=== PATIENT | male | born 1985 | race Caucasian/White ===

== ENCOUNTER 2017-09-12 00:30 | Observation (INO) | payer SELFPAY ==
[2017-09-12 01:02] LABS: CHLORIDE,CL 103 mEq/L (98-106); SODIUM,NA 138 mEq/L (136-145)
[2017-09-12] MEDS ORDERED: Alum Hydrox/Mag Hydrox/Simeth 30 ML, Lidocaine 2% 15 ML PO ONE ×2 (01:04)
--- NOTE | 2017-09-12 01:08 | EDM.PDOC ---
ED HPI GENERAL MEDICAL PROBLEM - General Chief Complaint: General Stated Complaint: abd pain Time Seen by Provider: 09/12/17 01:00 Source of Information: Reports: Patient History Limitations: Reports: No Limitations - History of Present Illness INITIAL COMMENTS - FREE TEXT/NARRATIVE: Raf is a 32 yo male who presents to the ER with complaints of ongoing abdominal discomfort. States he was seen by Ramona Willis, PCP about a month ago and had his Gabapentin increased for chronic abdominal pain. He has a known history of pancreatitis with pseudocysts and has been followed by the [facility] with prior surgical intervention. He admits he will occasionally get a flare up but seems to reside on itself. States current pain started about 5 days ago and hasn't really let up. He isn't sure if it is secondary to an ulcer or if it is his pancreas. Denies any alcohol use as he states he hasn't drank in years. States today he layed around and his father convinced him to come in [facility]. States he hasn't been followed by GI or really anyone up until recently. He hasn't had his amylase checked in a long time and as far as he knows it was normal then. Left Upper Abdomen Pain Score (Numeric/FACES): 8 - Related Data Allergies Allergy/AdvReac Type Severity Reaction Status Date / Time No Known Allergies Allergy Verified 09/12/17 00:33 Home Meds: Home Meds Lisinopril 10 mg PO DAILY 06/22/14 [History] Metoprolol Tartrate [Lopressor] 50 mg PO BID 06/22/14 [History] DULoxetine [Cymbalta] 60 mg PO DAILY 09/12/17 [History] Gabapentin [Neurontin] 900 mg PO TID 09/12/17 [History] Omeprazole 20 mg PO DAILY 09/12/17 [History] Past Medical History Cardiovascular History: Reports: Hypertension Gastrointestinal History: Reports: Other (See Below) Other Gastrointestinal History: PANCREATITIS Psychiatric History: Reports: Anxiety, Depression - Infectious Disease History Infectious Disease History: Reports: None - Past Surgical History GI Surgical History: Reports: Cholecystectomy Other GI Surgeries/Procedures: Pancreatic pseudocyst Social & Family History - Family History Family Medical History: Noncontributory - Tobacco Use Smoking Status *Q: Current Every Day Smoker Years of Tobacco use: 15 Packs/Tins Daily: 1 ED ROS GENERAL - Review of Systems Review Of Systems: See Below Constitutional: Reports: Chills, Weakness, Decreased Appetite. Denies: Fever HEENT: Reports: No Symptoms Respiratory: Reports: No Symptoms Cardiovascular: Reports: No Symptoms GI/Abdominal: Reports: Abdominal Pain, Decreased Appetite, Nausea, Vomiting. Denies: Bloody Stool, Constipation, Diarrhea : Reports: No Symptoms Skin: Reports: No Symptoms Neurological: Reports: No Symptoms Psychiatric: Reports: Anxiety ED EXAM, GENERAL - Physical Exam Exam: See Below Exam Limited By: No Limitations General Appearance: Alert, Mild Distress Ears: Normal External Exam, Normal Canal, Hearing Grossly Normal, Normal TMs Nose: Normal Inspection, Normal Mucosa, No Blood Throat/Mouth: Normal Inspection, Normal Lips, Normal Teeth, Normal Gums, Normal Oropharynx, Normal Voice, No Airway Compromise Head: Atraumatic, Normocephalic Neck: Normal Inspection, Supple Respiratory/Chest: No Respiratory Distress, Lungs Clear, Normal Breath Sounds, No Accessory Muscle Use Cardiovascular: Regular Rate, Rhythm, No Murmur GI/Abdominal: Normal Bowel Sounds, Soft, No Distention, Tender (midline to left upper quadrant) Extremities: Normal Inspection, No Pedal Edema Neurological: Alert, Oriented, Normal Cognition Psychiatric: Normal Affect, Normal Mood Skin Exam: Warm, Dry, Intact, Normal Color, No Rash Course - Vital Signs Last Recorded V/S: Last Vital Signs Temp 96.5 F 09/12/17 00:37 Pulse 77 09/12/17 00:37 Resp 20 09/12/17 00:37 BP 147/85 H 09/12/17 00:37 Pulse Ox 98 09/12/17 00:37 - Orders/Labs/Meds Orders: Active Orders 24 hr Category Date Time Status AMYLASE [CHEM] Stat Lab 09/12/17 00:43 Ordered C-REACTIVE PROTEIN [CHEM] Stat Lab 09/12/17 00:43 Ordered COMPREHENSIVE METABOLIC PN,CMP [CHEM] Stat Lab 09/12/17 00:43 Ordered DRUG SCREEN URINE BIORAD [URCHEM] Stat Lab 09/12/17 00:43 Ordered LIPASE [REF] Stat Lab 09/12/17 00:43 Ordered UA W/MICROSCOPIC [URIN] Stat Lab 09/12/17 00:43 Ordered Labs: Laboratory Tests 09/12/17 Range/Units 00:43 WBC 10.4 H (5.0-10.0) 10^3/uL RBC 4.60 (4.50-6.00) 10^6/uL Hgb 14.8 (14.0-18.0) g/dL Hct 43.4 (40.0-54.0) % MCV 94.3 H (82.0-94.0) fL MCH 32.2 H (27.0-32.0) pg MCHC 34.1 (33.0-38.0) g/dL RDW Coeff of Lluvia 12.9 (11.0-15.0) % Plt Count 261 (150-400) 10^3/uL Neut % (Auto) 78.3 (35-85) % Lymph % (Auto) 15.0 (10-55) % [place] % (Auto) 5.5 (0-16) % Eos % (Auto) 1.0 (0-5) % Baso % (Auto) 0.2 (0-3) % Neut # (Auto) 8.18 H (1.80-7.00) 10^3/uL Lymph # (Auto) 1.57 (1.00-4.80) 10^3/uL [place] # (Auto) 0.57 (0.00-0.80) 10^3/uL Eos # (Auto) 0.10 (0.00-0.45) 10^3/uL Baso # (Auto) 0.02 10^3/uL Departure - Departure Time of Disposition: 01:40 Disposition: Refer to Observation Condition: Good Clinical Impression: Abdominal pain Qualifiers: Abdominal location: left upper quadrant Qualified Code(s): R10.12 - Left upper quadrant pain Acute pancreatitis Qualifiers: Pancreatitis type: alcohol induced Qualified Code(s): K85.2 - Alcohol induced acute pancreatitis - Discharge Information Referrals: Yudelka Willis PA [Primary Care Provider] - - Problem List & Annotations (1) Acute pancreatitis SNOMED Code(s): 513032398 Code(s): K85.9 - ACUTE PANCREATITIS, UNSPECIFIED * DO NOT USE * Status: Acute Current Visit: Yes Qualifiers: Pancreatitis type: alcohol induced (2) Abdominal pain SNOMED Code(s): 87911616 Code(s): R10.9 - UNSPECIFIED ABDOMINAL PAIN Status: Acute Current Visit: Yes Qualifiers: Abdominal location: left upper quadrant Qualified Code(s): R10.12 - Left upper quadrant pain - Problem List Review Problem List Initiated/Reviewed/Updated: Yes - My Orders Last 24 Hours: My Active Orders 09/12/17 00:43 AMYLASE [CHEM] Stat C-REACTIVE PROTEIN [CHEM] Stat COMPREHENSIVE METABOLIC PN,CMP [CHEM] Stat DRUG SCREEN URINE BIORAD [URCHEM] Stat LIPASE [REF] Stat UA W/MICROSCOPIC [URIN] Stat - Assessment/Plan Admission H&P: Please use this note as an admission H&P Last 24 Hours: My Active Orders 09/12/17 00:43 AMYLASE [CHEM] Stat C-REACTIVE PROTEIN [CHEM] Stat COMPREHENSIVE METABOLIC PN,CMP [CHEM] Stat DRUG SCREEN URINE BIORAD [URCHEM] Stat LIPASE [REF] Stat UA W/MICROSCOPIC [URIN] Stat Plan: I reviewed Raf's clinical chart and last amylase was done in May of 2016 and normal at 80. Currently today it is just slightly elevated at 123. We will admit to Dr. Mcmillan's services under observation at this time for IV fluids and pain control. I will consult with Ramona Willis, who he states is his PCP now in the morning as well. Raf was transferred to the floor in satisfactory condition.
[2017-09-12] MEDS ORDERED: Docusate Sodium 100 MG Cap PO PRN (01:52)
[2017-09-12] MEDS ORDERED: Sodium Chloride 0.9% 10 ML Syringe FLUSH PRN (01:52)
[2017-09-12] MEDS ORDERED: Enoxaparin 40 MG/0.4 ML Syringe SUBCUT SCH ×2 (02:15→20:00)
[2017-09-12] MEDS: Lactated Ringers 1,000 ML IV SCH ×4 (02:27→22:10)
[2017-09-12] MEDS: Ondansetron 4 MG/2 ML SDV IV PRN ×2 (02:30→19:45)
[2017-09-12] MEDS: Ketorolac 30 MG/ML SDV IVPUSH PRN ×3 (02:33→22:11)
[2017-09-12] MEDS: Morphine 2 MG/ML Syringe IVPUSH PRN ×2 (05:13→09:44)
[2017-09-12] MEDS ORDERED: Iopamidol 612 MG/ML 100 ML Bottle IVPUSH ONE (07:13)
[2017-09-12 07:47] LABS: CHLORIDE,CL 103 mEq/L (98-106); SODIUM,NA 137 mEq/L (136-145)
[2017-09-12] MEDS ORDERED: Lisinopril 10 MG Tab PO SCH (08:00)
[2017-09-12] MEDS ORDERED: DULoxetine 30 MG Cap PO SCH (08:00)
[2017-09-12] MEDS ORDERED: Pantoprazole 40 MG Vial IVPUSH SCH (08:00)
[2017-09-12] MEDS: Gabapentin 300 MG Cap PO SCH ×3 (09:06→19:46)
[2017-09-12] MEDS: Metoprolol Tartrate 50 MG Tab PO SCH ×2 (09:06→19:46)
[2017-09-12] MEDS: fentaNYL 100 MCG/2 ML SDV IVPUSH PRN (15:57)
[2017-09-12] MEDS ORDERED: traMADol 50 MG Tab PO ONE (20:23)
--- NOTE | 2017-09-12 21:27 | PCM.PN ---
- General Info Date of Service: 09/12/17 Admission Dx/Problem (Free Text): Acute Pancreatitis Functional Status: Reports: Pain Controlled (with pain meds), Ambulating - Review of Systems General: Reports: Fatigue, Malaise. Denies: Fever, Weakness HEENT: Reports: No Symptoms Pulmonary: Denies: Shortness of Breath, Cough Cardiovascular: Denies: Chest Pain, Edema, Lightheadedness Gastrointestinal: Reports: Abdominal Pain. Denies: Nausea, Vomiting Genitourinary: Reports: No Symptoms Musculoskeletal: Reports: No Symptoms Skin: Reports: No Symptoms Neurological: Reports: No Symptoms Psychiatric: Reports: No Symptoms - Patient Data Vitals - Most Recent: Last Vital Signs Temp 96.2 F 09/12/17 19:58 Pulse 68 09/12/17 19:58 Resp 16 09/12/17 19:58 BP 156/89 H 09/12/17 19:58 Pulse Ox 98 09/12/17 19:58 Weight - Most Recent: 132 lb 1.6 oz I&O - Last 24 Hours: Intake & Output 09/12/17 09/12/17 09/12/17 06:59 14:59 22:59 Intake Total 995 1000 Output Total 600 1250 Balance -600 995 -250 Lab Results Last 24 Hours: Laboratory Results - last 24 hr 09/12/17 09/12/17 09/12/17 Range/Units 00:43 00:43 05:11 WBC 10.4 H 9.7 (5.0-10.0) 10^3/uL RBC 4.60 4.53 (4.50-6.00) 10^6/uL Hgb 14.8 14.4 (14.0-18.0) g/dL Hct 43.4 43.0 (40.0-54.0) % MCV 94.3 H 94.9 H (82.0-94.0) fL MCH 32.2 H 31.8 (27.0-32.0) pg MCHC 34.1 33.5 (33.0-38.0) g/dL RDW Coeff of Lluvia 12.9 12.9 (11.0-15.0) % Plt Count 261 254 (150-400) 10^3/uL Neut % (Auto) 78.3 67.0 (35-85) % Lymph % (Auto) 15.0 21.6 (10-55) % [place] % (Auto) 5.5 10.2 (0-16) % Eos % (Auto) 1.0 0.9 (0-5) % Baso % (Auto) 0.2 0.3 (0-3) % Neut # (Auto) 8.18 H 6.47 (1.80-7.00) 10^3/uL Lymph # (Auto) 1.57 2.08 (1.00-4.80) 10^3/uL [place] # (Auto) 0.57 0.98 H (0.00-0.80) 10^3/uL Eos # (Auto) 0.10 0.09 (0.00-0.45) 10^3/uL Baso # (Auto) 0.02 0.03 10^3/uL Sodium 138 (136-145) mEq/L Potassium 4.2 (3.5-5.0) mEq/L Chloride 103 (98-106) mEq/L Carbon Dioxide 30 (21-32) mmol/L BUN 17 (7-18) mg/dL Creatinine 0.8 (0.7-1.3) mg/dL Est Cr Clr Drug Dosing 125.21 mL/min Estimated GFR (MDRD) > 60 (>=60) mL/min Glucose 171 H D (75-99) mg/dL Calcium 9.1 (8.4-10.1) mg/dL Magnesium (1.8-2.4) mg/dL Total Bilirubin 0.2 (0.0-1.0) mg/dL AST 14 L (15-37) U/L ALT 21 (12-78) U/L Alkaline Phosphatase 103 (46-116) U/L C-Reactive Protein 5.9 H (0.2-0.8) mg/dL Total Protein 7.2 (6.4-8.2) g/dL Albumin 3.7 (3.4-5.0) g/dL Amylase 123 H (25-115) U/L Urine Color (YELLOW) Urine Appearance (CLEAR) Urine pH (4.5-8.0) Ur Specific [place] (1.003-1.020) Urine Protein (NEGATIVE) mg/dL Urine Glucose (UA) (NEGATIVE) mg/dL Urine Ketones (NEGATIVE) mg/dL Urine Occult Blood (NEGATIVE) Urine Nitrite (NEGATIVE) Urine Bilirubin (NEGATIVE) Urine Urobilinogen (0.2-1.0) EU/dL Ur Leukocyte Esterase (NEGATIVE) Urine RBC (0-5) /HPF Urine WBC (0-5) /HPF Urine Opiates Screen (NEGATIVE) Ur Oxycodone Screen (NEGATIVE) Urine Methadone Screen (NEGATIVE) Ur Barbiturates Screen (NEGATIVE) U Tricyclic Antidepress (NEGATIVE) Ur Phencyclidine Scrn (NEGATIVE) Ur Amphetamine Screen (NEGATIVE) U Methamphetamines Scrn (NEGATIVE) Urine MDMA Screen (NEGATIVE) U Benzodiazepines Scrn (NEGATIVE) Urine Cocaine Screen (NEGATIVE) U Marijuana (THC) Screen (NEGATIVE) 09/12/17 09/12/17 09/12/17 Range/Units 05:11 05:23 05:23 WBC (5.0-10.0) 10^3/uL RBC (4.50-6.00) 10^6/uL Hgb (14.0-18.0) g/dL Hct (40.0-54.0) % MCV (82.0-94.0) fL MCH (27.0-32.0) pg MCHC (33.0-38.0) g/dL RDW Coeff of Lluvia (11.0-15.0) % Plt Count (150-400) 10^3/uL Neut % (Auto) (35-85) % Lymph % (Auto) (10-55) % [place] % (Auto) (0-16) % Eos % (Auto) (0-5) % Baso % (Auto) (0-3) % Neut # (Auto) (1.80-7.00) 10^3/uL Lymph # (Auto) (1.00-4.80) 10^3/uL [place] # (Auto) (0.00-0.80) 10^3/uL Eos # (Auto) (0.00-0.45) 10^3/uL Baso # (Auto) 10^3/uL Sodium 137 (136-145) mEq/L Potassium 4.5 (3.5-5.0) mEq/L Chloride 103 (98-106) mEq/L Carbon Dioxide 31 (21-32) mmol/L BUN 15 (7-18) mg/dL Creatinine 0.6 L (0.7-1.3) mg/dL Est Cr Clr Drug Dosing 147.02 mL/min Estimated GFR (MDRD) > 60 (>=60) mL/min Glucose 111 H D (75-99) mg/dL Calcium 9.1 (8.4-10.1) mg/dL Magnesium 2.1 (1.8-2.4) mg/dL Total Bilirubin 0.4 (0.0-1.0) mg/dL AST 91 H (15-37) U/L ALT 60 (12-78) U/L Alkaline Phosphatase 215 H (46-116) U/L C-Reactive Protein 5.9 H (0.2-0.8) mg/dL Total Protein 6.9 (6.4-8.2) g/dL Albumin 3.5 (3.4-5.0) g/dL Amylase (25-115) U/L Urine Color Yellow (YELLOW) Urine Appearance Clear (CLEAR) Urine pH 7.0 (4.5-8.0) Ur Specific [place] 1.020 (1.003-1.020) Urine Protein Negative (NEGATIVE) mg/dL Urine Glucose (UA) Negative (NEGATIVE) mg/dL Urine Ketones Negative (NEGATIVE) mg/dL Urine Occult Blood Negative (NEGATIVE) Urine Nitrite Negative (NEGATIVE) Urine Bilirubin Negative (NEGATIVE) Urine Urobilinogen 1.0 (0.2-1.0) EU/dL Ur Leukocyte Esterase Negative (NEGATIVE) Urine RBC Not seen (0-5) /HPF Urine WBC Not seen (0-5) /HPF Urine Opiates Screen Negative (NEGATIVE) Ur Oxycodone Screen Negative (NEGATIVE) Urine Methadone Screen Negative (NEGATIVE) Ur Barbiturates Screen Negative (NEGATIVE) U Tricyclic Antidepress Negative (NEGATIVE) Ur Phencyclidine Scrn Negative (NEGATIVE) Ur Amphetamine Screen Negative (NEGATIVE) U Methamphetamines Scrn Negative (NEGATIVE) Urine MDMA Screen Negative (NEGATIVE) U Benzodiazepines Scrn Negative (NEGATIVE) Urine Cocaine Screen Negative (NEGATIVE) U Marijuana (THC) Screen Positive H (NEGATIVE) 09/12/17 Range/Units 07:00 WBC (5.0-10.0) 10^3/uL RBC (4.50-6.00) 10^6/uL Hgb (14.0-18.0) g/dL Hct (40.0-54.0) % MCV (82.0-94.0) fL MCH (27.0-32.0) pg MCHC (33.0-38.0) g/dL RDW Coeff of Lluvia (11.0-15.0) % Plt Count (150-400) 10^3/uL Neut % (Auto) (35-85) % Lymph % (Auto) (10-55) % [place] % (Auto) (0-16) % Eos % (Auto) (0-5) % Baso % (Auto) (0-3) % Neut # (Auto) (1.80-7.00) 10^3/uL Lymph # (Auto) (1.00-4.80) 10^3/uL [place] # (Auto) (0.00-0.80) 10^3/uL Eos # (Auto) (0.00-0.45) 10^3/uL Baso # (Auto) 10^3/uL Sodium (136-145) mEq/L Potassium (3.5-5.0) mEq/L Chloride (98-106) mEq/L Carbon Dioxide (21-32) mmol/L BUN (7-18) mg/dL Creatinine (0.7-1.3) mg/dL Est Cr Clr Drug Dosing mL/min Estimated GFR (MDRD) (>=60) mL/min Glucose (75-99) mg/dL Calcium (8.4-10.1) mg/dL Magnesium (1.8-2.4) mg/dL Total Bilirubin (0.0-1.0) mg/dL AST (15-37) U/L ALT (12-78) U/L Alkaline Phosphatase (46-116) U/L C-Reactive Protein (0.2-0.8) mg/dL Total Protein (6.4-8.2) g/dL Albumin (3.4-5.0) g/dL Amylase 105 (25-115) U/L Urine Color (YELLOW) Urine Appearance (CLEAR) Urine pH (4.5-8.0) Ur Specific [place] (1.003-1.020) Urine Protein (NEGATIVE) mg/dL Urine Glucose (UA) (NEGATIVE) mg/dL Urine Ketones (NEGATIVE) mg/dL Urine Occult Blood (NEGATIVE) Urine Nitrite (NEGATIVE) Urine Bilirubin (NEGATIVE) Urine Urobilinogen (0.2-1.0) EU/dL Ur Leukocyte Esterase (NEGATIVE) Urine RBC (0-5) /HPF Urine WBC (0-5) /HPF Urine Opiates Screen (NEGATIVE) Ur Oxycodone Screen (NEGATIVE) Urine Methadone Screen (NEGATIVE) Ur Barbiturates Screen (NEGATIVE) U Tricyclic Antidepress (NEGATIVE) Ur Phencyclidine Scrn (NEGATIVE) Ur Amphetamine Screen (NEGATIVE) U Methamphetamines Scrn (NEGATIVE) Urine MDMA Screen (NEGATIVE) U Benzodiazepines Scrn (NEGATIVE) Urine Cocaine Screen (NEGATIVE) U Marijuana (THC) Screen (NEGATIVE) Med Orders - Current: Current Medications Docusate Sodium (Colace) 100 mg PO BID PRN PRN Reason: Constipation Duloxetine HCl (Cymbalta) 60 mg PO DAILY [facility] Last Admin: 09/12/17 09:06 Dose: 60 mg Enoxaparin Sodium (Lovenox) 40 mg SUBCUT DAILY@1999 [facility] Last Admin: 09/12/17 19:48 Dose: Not Given Fentanyl (Sublimaze) 50 mcg IVPUSH Q6H PRN PRN Reason: Pain Last Admin: 09/12/17 15:57 Dose: 50 mcg Gabapentin (Neurontin) 900 mg PO TID [facility] Last Admin: 09/12/17 19:46 Dose: 900 mg Lactated Ringer's (Ringers, Lactated) 1,000 mls @ 150 mls/hr IV ASDIRECTED [facility] Last Admin: 09/12/17 15:48 Dose: 150 mls/hr Ketorolac Tromethamine (Toradol) 30 mg IVPUSH Q8H PRN PRN Reason: Pain Stop: 09/17/17 01:35 Last Admin: 09/12/17 14:47 Dose: 30 mg Lisinopril (Prinivil) 10 mg PO DAILY [facility] Last Admin: 09/12/17 09:07 Dose: 10 mg Metoprolol Tartrate (Lopressor) 50 mg PO BID [facility] Last Admin: 09/12/17 19:46 Dose: 50 mg Ondansetron HCl (Zofran) 4 mg IV Q4H PRN PRN Reason: Nausea/Vomiting Last Admin: 09/12/17 19:45 Dose: 4 mg Pantoprazole Sodium (Protonix Iv) 40 mg IVPUSH DAILY [facility] Last Admin: 09/12/17 08:04 Dose: 40 mg Sodium Chloride (Saline Flush) 10 ml FLUSH ASDIRECTED PRN PRN Reason: Keep Vein Open Discontinued Medications Al Hydroxide/Mg Hydroxide 30 (ml/ Lidocaine HCl 15 ml) 0 ml PO ONETIME ONE Stop: 09/12/17 01:05 Last Admin: 09/12/17 01:11 Dose: 30 ml Enoxaparin Sodium (Lovenox) 40 mg SUBCUT Q24H [facility] Last Admin: 09/12/17 02:37 Dose: 40 mg Iopamidol (Isovue-300 (61%)) 100 ml IVPUSH ONETIME ONE Stop: 09/12/17 07:14 Last Admin: 09/12/17 08:09 Dose: 100 ml Morphine Sulfate (Morphine) 2 mg IVPUSH Q4H PRN PRN Reason: Pain (severe 7-10) Last Admin: 09/12/17 09:44 Dose: 2 mg Tramadol HCl (Ultram) 50 mg PO ONETIME ONE Stop: 09/12/17 20:24 Last Admin: 09/12/17 20:44 Dose: 50 mg - Exam General: Alert, Oriented HEENT: Mucous Membr. Moist/[place] Neck: Supple Lungs: Clear to Auscultation, Normal Respiratory Effort Cardiovascular: Regular Rate, Regular Rhythm GI/Abdominal Exam: Normal Bowel Sounds, Soft, Tender (midepigastric area) Extremities: Normal Inspection, No Pedal Edema Skin: Warm, Dry Neurological: No New Focal Deficit - Problem List & Annotations (1) Acute pancreatitis SNOMED Code(s): 563303573 Code(s): K85.9 - ACUTE PANCREATITIS, UNSPECIFIED * DO NOT USE * Status: Acute Priority: High Current Visit: Yes Qualifiers: Pancreatitis type: alcohol induced (2) Abdominal pain SNOMED Code(s): 28071234 Code(s): R10.9 - UNSPECIFIED ABDOMINAL PAIN Status: Acute Priority: High Current Visit: Yes Qualifiers: Abdominal location: left upper quadrant Qualified Code(s): R10.12 - Left upper quadrant pain - Problem List Review Problem List Initiated/Reviewed/Updated: Yes - My Orders Last 24 Hours: My Active Orders 09/12/17 10:43 fentaNYL [Sublimaze] 50 mcg IVPUSH Q6H PRN - Assessment Assessment:: Acute Pancreatitis - Plan Plan:: Patient continues to have pain that he rates a 7/10, does get some pain relief with pain meds. Remains NPO with IV fluids infusing. Did have a CT scan of his abdomen this am. Stat read noted to have acute on chronic pancreatitis. Very small pseudocyst noted. No necrosis. WBC 10.7 down to 9.7. Glucose improved today to 111. CRP 5.9. Amylase improved from 123 to 105. Is tender to upper quadrants. Continue to keep NPO as pain still significant. IV fluids and pain meds. Will follow Amylase levels. Introduce fluids as able dependent on pain. Reevaluate in am.
[2017-09-13] MEDS: fentaNYL 100 MCG/2 ML SDV IVPUSH PRN (00:14)
[2017-09-13] MEDS: Lactated Ringers 1,000 ML IV SCH (04:07)
[2017-09-13 04:26] VITALS: BP 142/86
== END 2017-09-13 06:15 | disposition left against medical advice (07) ==
LOC: CC.ED 00:30 → OBSVTOIN 01:31 → INTOOBSV 01:31 → CC.MS 01:31 → OBSVTOIN 01:41 → UNDOADMOB 01:41 → INTOOBSV 01:41
PROVIDERS: ADMIT Physician Assistant Medical; ATTEND Family Medicine
DX: K85.20 Alcohol induced acute pancreatitis without necrosis or infection (principal); K86.0 Alcohol-induced chronic pancreatitis; K86.9 Disease of pancreas, unspecified; I10 Essential (primary) hypertension; F17.200 Nicotine dependence, unspecified, uncomplicated; F41.9 Anxiety disorder, unspecified; F32.9 Major depressive disorder, single episode, unspecified; Z79.899 Other long term (current) drug therapy
CPT/HCPCS: 36415; 74178; 80053; 80305; 81001; 82150; 83690; 83735; 85025; 86140; 99284; A9270; C9113; J1650; J1885; J2270; J2405; J3010; J7120; Q9967; 96361; 96372; 96374; 96375

== ENCOUNTER 2018-07-07 01:51 | Emergency (ER) | payer MEDICARE, MEDICAID ==
[2018-07-07] MEDS ORDERED: Ondansetron 4 MG Tab.DIS PO ONE (01:52)
[2018-07-07] MEDS ORDERED: traMADol 50 MG Tab PO ONE (01:52)
[2018-07-07] MEDS ORDERED: Sodium Chloride 0.9% 1,000 ML IV ONE (02:20)
[2018-07-07] MEDS ORDERED: Ondansetron 4 MG/2 ML SDV IVPUSH PRN (02:20)
[2018-07-07] MEDS ORDERED: Ketorolac 30 MG/ML SDV IVPUSH PRN (02:20)
[2018-07-07 02:40] LABS: CHLORIDE,CL 98 mEq/L (98-106); SODIUM,NA 140 mEq/L (136-145)
[2018-07-07] MEDS ORDERED: Morphine 4 MG/ML Syringe IVPUSH ONE (03:04)
[2018-07-07] MEDS ORDERED: Morphine 2 MG/ML Syringe IVPUSH ONE (03:08)
--- NOTE | 2018-07-07 03:13 | EDM.PDOC ---
ED HPI GENERAL MEDICAL PROBLEM - General Chief Complaint: Abdominal Pain Stated Complaint: LLQ pain Time Seen by Provider: 07/07/18 02:15 Source of Information: Reports: Patient History Limitations: Reports: No Limitations - History of Present Illness INITIAL COMMENTS - FREE TEXT/NARRATIVE: Raf is a 33 yo male who presents to the ED with complaints of nausea, vomiting and abdominal pain. He has known history of chronic pancreatitis with pancreatic cysts, which he admits have been gradually shrinking. He has been seeing a few providers in [place] and states he really doesn't have a primary provider presently. States he has been going to the [place] ED off and on over the last month with the same symptoms which is an exacerbation of his pancreatitis. Admits he will typically get something for the pain, anti-nausea medications and IV fluids which seems to help. States his lipase has been running high along with his liver enzymes as well. He states no surgeon will do surgery on him and they keep telling him it will get better on its own over time. He states the last couple of days he hasn't really ate or drank anything. States if he eats something the pain seems to worsen. Left Lower Abdomen Pain Score (Numeric/FACES): 9 - Related Data Allergies Allergy/AdvReac Type Severity Reaction Status Date / Time No Known Allergies Allergy Verified 07/07/18 01:58 Home Meds: Home Meds Lisinopril 10 mg PO DAILY 06/22/14 [History] Metoprolol Tartrate [Lopressor] 50 mg PO BID 06/22/14 [History] Amitriptyline [Elavil] 10 mg PO BEDTIME 07/07/18 [History] Pantoprazole [ProTONIX] 40 mg PO DAILY 07/07/18 [History] busPIRone [Buspar] 10 mg PO TID 07/07/18 [History] Past Medical History Cardiovascular History: Reports: Hypertension Gastrointestinal History: Reports: Other (See Below) Other Gastrointestinal History: Chronic pancreatitis Psychiatric History: Reports: Anxiety, Depression - Infectious Disease History Infectious Disease History: Reports: None - Past Surgical History GI Surgical History: Reports: Cholecystectomy Other GI Surgeries/Procedures: Pancreatic pseudocyst Social & Family History - Family History Family Medical History: Noncontributory - Tobacco Use Smoking Status *Q: Current Every Day Smoker Years of Tobacco use: 18 Packs/Tins Daily: 5 - Caffeine Use Caffeine Use: Reports: Coffee - Recreational Drug Use Recreational Drug Use: No ED ROS GENERAL - Review of Systems Review Of Systems: See Below Constitutional: Reports: Decreased Appetite. Denies: Fever, Chills HEENT: Reports: No Symptoms Respiratory: Reports: No Symptoms Cardiovascular: Reports: No Symptoms GI/Abdominal: Reports: Abdominal Pain, Decreased Appetite, Nausea, Vomiting. Denies: Bloody Stool, Constipation, Diarrhea : Reports: No Symptoms Neurological: Reports: No Symptoms Psychiatric: Reports: No Symptoms ED EXAM, GI/ABD - Physical Exam Exam: See Below Exam Limited By: No Limitations General Appearance: Alert, Mild Distress Ears: Normal External Exam, Normal Canal, Hearing Grossly Normal, Normal TMs Nose: Normal Inspection, Normal Mucosa, No Blood Throat/Mouth: Normal Inspection, Normal Lips, Normal Gums, Normal Oropharynx, Normal Voice, No Airway Compromise Head: Atraumatic, Normocephalic Neck: Normal Inspection, Supple, Non-Tender Respiratory/Chest: No Respiratory Distress, Lungs Clear, Normal Breath Sounds, No Accessory Muscle Use Cardiovascular: Normal Peripheral Pulses, Regular Rate, Rhythm, No Edema, No Murmur GI/Abdominal Exam: Normal Bowel Sounds, Soft, No Organomegaly, No Mass, Tender ( mild epigastric tenderness). No: Distended, Guarding, Rigid, Rebound Extremities: Normal Inspection, No Pedal Edema Neurological: Alert, Oriented, Normal Cognition, No Motor/Sensory Deficits Psychiatric: Normal Affect, Normal Mood Skin Exam: Warm, Dry, Intact, Normal Color, No Rash Course - Vital Signs Last Recorded V/S: Last Vital Signs Temp 98.6 F 07/07/18 03:40 Pulse 90 07/07/18 03:40 Resp 20 07/07/18 03:40 BP 128/88 07/07/18 03:40 Pulse Ox 97 07/07/18 03:40 - Orders/Labs/Meds Orders: Active Orders 24 hr Category Date Time Status Ketorolac [Toradol] Med 07/07/18 02:20 Active 30 mg IVPUSH Q6H PRN Ondansetron [Zofran] Med 07/07/18 03:30 Active 4 mg IV Q4H PRN Sodium Chloride 0.9% [Normal Saline] 1,000 ml Med 07/07/18 03:45 Active IV ASDIRECTED fentaNYL [Sublimaze] Med 07/07/18 03:30 Active 25 - 50 mcg IVPUSH Q4H PRN Medication Orders Fentanyl (Sublimaze) 25 - 50 mcg IVPUSH Q4H PRN PRN Reason: Pain Last Admin: 07/07/18 07:41 Dose: 25 mcg Admin: 07/07/18 03:38 Dose: 25 mcg Sodium Chloride (Normal Saline) 1,000 mls @ 150 mls/hr IV ASDIRECTED MARY Last Admin: 07/07/18 03:40 Dose: 150 mls/hr Ketorolac Tromethamine (Toradol) 30 mg IVPUSH Q6H PRN PRN Reason: Pain Stop: 07/12/18 02:20 Last Admin: 07/07/18 02:35 Dose: 30 mg Ondansetron HCl (Zofran) 4 mg IV Q4H PRN PRN Reason: Nausea/Vomiting Labs: Laboratory Tests 07/07/18 07/07/18 07/07/18 Range/Units 02:25 02:25 08:00 WBC 13.3 H (5.0-10.0) 10^3/uL RBC 5.22 (4.50-6.00) 10^6/uL Hgb 16.6 (14.0-18.0) g/dL Hct 46.7 (40.0-54.0) % MCV 89.5 (82.0-94.0) fL MCH 31.8 (27.0-32.0) pg MCHC 35.5 (33.0-38.0) g/dL RDW Coeff of Lluvia 12.3 (11.0-15.0) % Plt Count 264 (150-400) 10^3/uL MPV Cancelled Neut % (Auto) 85.2 H (35-85) % Lymph % (Auto) 9.6 L (10-55) % [place] % (Auto) 4.5 (0-16) % Eos % (Auto) 0.5 (0-5) % Baso % (Auto) 0.2 (0-3) % Neut # (Auto) 11.28 H (1.80-7.00) 10^3/uL Lymph # (Auto) 1.27 (1.00-4.80) 10^3/uL [place] # (Auto) 0.60 (0.00-0.80) 10^3/uL Eos # (Auto) 0.07 (0.00-0.45) 10^3/uL Baso # (Auto) 0.02 10^3/uL Sodium 140 (136-145) mEq/L Potassium 3.7 (3.5-5.0) mEq/L Chloride 98 (98-106) mEq/L Carbon Dioxide 28 (21-32) mmol/L BUN 10 (7-18) mg/dL Creatinine 0.7 (0.7-1.3) mg/dL Est Cr Clr Drug Dosing 132.30 mL/min Estimated GFR (MDRD) > 60 (>=60) mL/min Glucose 128 H (75-99) mg/dL Calcium 10.2 H (8.4-10.1) mg/dL Total Bilirubin 0.5 (0.0-1.0) mg/dL AST 146 H (15-37) U/L ALT 321 H* (12-78) U/L Alkaline Phosphatase 376 H (46-116) U/L C-Reactive Protein 4.3 H 4.9 H (0.2-0.8) mg/dL Total Protein 8.9 H (6.4-8.2) g/dL Albumin 4.7 (3.4-5.0) g/dL Amylase 85 (25-115) U/L Lipase 561 H 255 (73-393) U/L 07/07/18 Range/Units 08:00 WBC 9.5 (5.0-10.0) 10^3/uL RBC 4.43 L (4.50-6.00) 10^6/uL Hgb 14.1 (14.0-18.0) g/dL Hct 40.6 (40.0-54.0) % MCV 91.6 (82.0-94.0) fL MCH 31.8 (27.0-32.0) pg MCHC 34.7 (33.0-38.0) g/dL RDW Coeff of Lluvia 12.4 (11.0-15.0) % Plt Count 213 (150-400) 10^3/uL MPV Neut % (Auto) 63.5 (35-85) % Lymph % (Auto) 23.4 (10-55) % [place] % (Auto) 11.1 (0-16) % Eos % (Auto) 1.8 (0-5) % Baso % (Auto) 0.2 (0-3) % Neut # (Auto) 6.01 (1.80-7.00) 10^3/uL Lymph # (Auto) 2.22 (1.00-4.80) 10^3/uL [place] # (Auto) 1.05 H (0.00-0.80) 10^3/uL Eos # (Auto) 0.17 (0.00-0.45) 10^3/uL Baso # (Auto) 0.02 10^3/uL Sodium (136-145) mEq/L Potassium (3.5-5.0) mEq/L Chloride (98-106) mEq/L Carbon Dioxide (21-32) mmol/L BUN (7-18) mg/dL Creatinine (0.7-1.3) mg/dL Est Cr Clr Drug Dosing mL/min Estimated GFR (MDRD) (>=60) mL/min Glucose (75-99) mg/dL Calcium (8.4-10.1) mg/dL Total Bilirubin (0.0-1.0) mg/dL AST (15-37) U/L ALT (12-78) U/L Alkaline Phosphatase (46-116) U/L C-Reactive Protein (0.2-0.8) mg/dL Total Protein (6.4-8.2) g/dL Albumin (3.4-5.0) g/dL Amylase (25-115) U/L Lipase (73-393) U/L Meds: Medications Generic Name Dose Route Start Last Admin Trade Name Freq PRN Reason Stop Dose Admin Fentanyl 25 - 50 mcg 07/07/18 03:30 07/07/18 07:41 Sublimaze IVPUSH 25 mcg Q4H PRN Administration Pain Sodium Chloride 1,000 mls @ 150 mls/hr 07/07/18 03:45 07/07/18 03:40 Normal Saline IV 150 mls/hr ASDIRECTED MARY Administration Ketorolac Tromethamine 30 mg 07/07/18 02:20 07/07/18 02:35 Toradol IVPUSH 07/12/18 02:20 30 mg Q6H PRN Administration Pain Ondansetron HCl 4 mg 07/07/18 03:30 Zofran IV Q4H PRN Nausea/Vomiting Discontinued Medications Generic Name Dose Route Start Last Admin Trade Name Chante PRN Reason Stop Dose Admin Sodium Chloride 1,000 mls @ 999 mls/hr 07/07/18 02:20 07/07/18 02:35 Normal Saline IV 07/07/18 03:20 999 mls/hr .BOLUS ONE Administration Morphine Sulfate 4 mg 07/07/18 03:04 07/07/18 03:30 Morphine IVPUSH 07/07/18 03:05 Not Given ONETIME ONE Morphine Sulfate 2 mg 07/07/18 03:08 07/07/18 03:12 Morphine IVPUSH 07/07/18 03:09 2 mg ONETIME ONE Administration Ondansetron HCl 4 mg 07/07/18 02:20 07/07/18 02:35 Zofran IVPUSH 4 mg Q6H PRN Administration Nausea - Re-Assessments/Exams Free Text/Narrative Re-Assessment/Exam: 07/07/18 03:34 Raf has been given 1 liter of intravenous Normal Saline bolus, 4mg of Zofran, 4mg of Morphine and 30mg of Toradol. He admits the nausea improved but continues to have discomfort. Current pain is an 8 out of 10 and upon arrival a 10 out of 10. He admits it has been a lot worse. We will keep him extended ER with repeat labs in the morning. Orders written for pain control and continuing IV fluids. Will reassess in am. Raf verbalized understanding. Departure - Departure Time of Disposition: 09:58 Disposition: Home, Self-Care 01 Condition: Good Clinical Impression: Chronic recurrent pancreatitis - Discharge Information Instructions: Chronic Pancreatitis Referrals: PCP,None [Primary Care Provider] - Forms: ED Department Discharge Additional Instructions: 1) Encourage pushing fluids 2) Zofran ODT - 1 tablet every 4 hours as needed for nausea 3) Tramadol 50mg - 1 tablet every 6-8 hours as needed for pain, only 4 tablets in total, need to see primary provider for chronic pain medications 4) Recommend follow up with primary in 1 week. 5) Return to ED if any worsening of condition. 6) Labs are all normal today - Problem List & Annotations (1) Pancreatic pseudocyst SNOMED Code(s): 335888168 Code(s): K86.3 - PSEUDOCYST OF PANCREAS Status: Chronic Current Visit: No (2) Chronic recurrent pancreatitis SNOMED Code(s): 016798666 Code(s): K86.1 - OTHER CHRONIC PANCREATITIS Status: Acute Current Visit: Yes - My Orders Last 24 Hours: My Active Orders 07/07/18 02:20 Ketorolac [Toradol] 30 mg IVPUSH Q6H PRN 07/07/18 03:30 Ondansetron [Zofran] 4 mg IV Q4H PRN fentaNYL [Sublimaze] 25 - 50 mcg IVPUSH Q4H PRN 07/07/18 03:45 Sodium Chloride 0.9% [Normal Saline] 1,000 ml IV ASDIRECTED - Assessment/Plan Last 24 Hours: My Active Orders 07/07/18 02:20 Ketorolac [Toradol] 30 mg IVPUSH Q6H PRN 07/07/18 03:30 Ondansetron [Zofran] 4 mg IV Q4H PRN fentaNYL [Sublimaze] 25 - 50 mcg IVPUSH Q4H PRN 07/07/18 03:45 Sodium Chloride 0.9% [Normal Saline] 1,000 ml IV ASDIRECTED Plan: Raf had an uneventful night. Lipase and WBC returned to normal this morning. He appears to be feeling a lot better, sitting up in room in no acute distress. Will discharge home, see additional instructions.
[2018-07-07] MEDS ORDERED: Ondansetron 4 MG/2 ML SDV IV PRN (03:30)
[2018-07-07] MEDS: fentaNYL 100 MCG/2 ML SDV IVPUSH PRN ×2 (03:38→07:41)
[2018-07-07 03:41] VITALS: BP 128/88
[2018-07-07] MEDS ORDERED: Sodium Chloride 0.9% 1,000 ML IV SCH (03:45)
[2018-07-07] MEDS ORDERED: Take Home: Ondansetron 4 MG Tab.DIS, 2 Tab Pack PO ONE (10:02)
[2018-07-07] MEDS ORDERED: Take Home: traMADol 50 MG, 4 Tab Pack PO ONE (10:02)
== END 2018-07-07 10:25 | disposition home or self-care (01) ==
LOC: CC.ED 01:51
DX: K86.1 Other chronic pancreatitis (principal); I10 Essential (primary) hypertension; F41.9 Anxiety disorder, unspecified; F32.9 Major depressive disorder, single episode, unspecified; F17.210 Nicotine dependence, cigarettes, uncomplicated
CPT/HCPCS: 36415; 80053; 82150; 83690; 85025; 86140; 96361; 96374; 96375; 96376; 99284; A9270; J1885; J2270; J2405; J3010; J7030

== ENCOUNTER 2024-09-27 15:21 | Emergency (ER) | payer MEDICARE ==
[2024-09-27 15:29] VITALS: BP 129/89; PULSE 100
[2024-09-27] MEDS: Take Home: Amoxicillin 500 MG Cap, 2 Cap Pack PO ONE (16:02)
[2024-09-27] MEDS: Take Home: Acetaminophen/HYDROcodone 325-5 MG, 2 Tab Pack PO ONE (16:02)
== END 2024-09-27 16:20 | disposition home or self-care (01) ==
LOC: CC.ED 15:21
DX: K04.7 Periapical abscess without sinus (principal); I10 Essential (primary) hypertension; Z79.899 Other long term (current) drug therapy; Z90.49 Acquired absence of other specified parts of digestive tract
CPT/HCPCS: 99282; A9270-GY

== ENCOUNTER 2024-10-01 01:25 | Emergency (ER) | payer MEDICARE ==
[2024-10-01 01:41] VITALS: BP 154/91; PULSE 92
[2024-10-01] MEDS: Lidocaine 1% with EPINEPHrine 1:100,000 10 ML MDV INJECT ONE (01:50)
[2024-10-01] MEDS: Amoxicillin/Clavulanate K 875-125 MG Tab PO STA (02:08)
== END 2024-10-01 02:15 | disposition home or self-care (01) ==
LOC: CC.ED 01:25
DX: K04.7 Periapical abscess without sinus (principal); I10 Essential (primary) hypertension; Z79.899 Other long term (current) drug therapy; Z90.49 Acquired absence of other specified parts of digestive tract
CPT/HCPCS: 41800; 87070; 87205; 99283-25; A9270-GY

== ENCOUNTER 2024-10-18 22:29 | Emergency (ER) | payer MEDICARE, MEDICAID ==
[2024-10-18 22:32] VITALS: BP 126/76; PULSE 57
[2024-10-18 22:53] LABS: BASOPHILS ABSOLUTE AUTO 0.08 10^3/uL (0.00-0.50); BASOPHILS PERCENT AUTO 0.6 % (0-1); EOSINOPHILS ABSOLUTE AUTO 0.19 10^3/uL (0.00-1.50); EOSINOPHILS PERCENT AUTO 1.3 % (0-6); IMMATURE GRAN ABSOLUTE AUTO 0.06 10^3/uL (0.00-0.49); IMMATURE GRAN PERCENT AUTO 0.4 % (0.0-4.9); LYMPHOCYTES ABSOLUTE AUTO 4.35 10^3/uL (0.60-5.00); LYMPHOCYTES PERCENT AUTO 30.4 % (24-44); MONOCYTES ABSOLUTE AUTO 1.06 10^3/uL (0.00-1.50); MONOCYTES PERCENT AUTO 7.4 % (0-10); NEUTROPHILS ABSOLUTE AUTO 8.55 x10^3/uL (1.80-8.00); NEUTROPHILS PERCENT AUTO 59.9 % (41-71); PLATELET COUNT,PLT 280 10^3/uL (150-400); RED BLOOD CELL COUNT 4.25 x10^6/uL (4.50-6.00); WHITE BLOOD CELL COUNT,WBC 14.3 10^3/uL (4.0-11.0)
[2024-10-18 23:06] LABS: ALANINE AMINOTRANSFERASE,ALT 62.0 U/L (12-78); ASPARTATE AMNIOTRANSFERASE,AST 59.0 U/L (15-37); BILIRUBIN TOTAL 0.4 mg/dL (0.0-1.0); BLOOD UREA NITROGEN,BUN 18.0 mg/dL (7-18); CARBON DIOXIDE,CO2 25.0 mmol/L (21-32); CHLORIDE,CL 98.0 mEq/L (98-106); CREATININE 0.8 mg/dL (0.7-1.3); EST CRCL DRUG DOSING (CG) 120.84 mL/min; POTASSIUM,K 3.9 mEq/L (3.5-5.0); PROTEIN TOTAL,TP 7.6 g/dL (6.4-8.2); SODIUM,NA 134.0 mEq/L (136-145)
[2024-10-18] MEDS: diphenhydrAMINE 50 MG/ML SDV IVPUSH ONE (23:06)
[2024-10-18 23:07] LABS: ESTIMATED GFR 114.0 mL/min (>=60); GLUCOSE RANDOM 317.0 mg/dL (75-99)
[2024-10-18] MEDS: Ketorolac 30 MG/ML SDV IVPUSH ONE (23:08)
[2024-10-18 23:27] LABS: APPEARANCE,URINE CLEAR (CLEAR); GLUCOSE,URINE 500 mg/dL (NEGATIVE); OCCULT BLOOD,URINE NEGATIVE (NEGATIVE)
== END 2024-10-19 00:02 | disposition left against medical advice (07) ==
LOC: CC.ED 22:29
DX: R51.9 Headache, unspecified (principal); Z53.29 Procedure and treatment not carried out because of patient's decision for other reasons; I10 Essential (primary) hypertension; F17.210 Nicotine dependence, cigarettes, uncomplicated; Z79.899 Other long term (current) drug therapy; Z90.49 Acquired absence of other specified parts of digestive tract
CPT/HCPCS: 36415; 71045; 80053; 81003; 82800; 83735; 85025; 87426; 96361; 96374; 96375; 99284; J1200; J1885; J2765; J7030